=== PATIENT | male | born 1995 ===

== ENCOUNTER 2017-03-15 23:08 | Emergency (ER) | payer OTHER ==
[2017-03-15] MEDS ORDERED: Sodium Chloride 0.9% 1,000 ML IV ONE (23:39)
[2017-03-15] MEDS ORDERED: ceFAZolin 1 gm FROZEN Premix 1 GM/50 ML ML IVPB ONE (23:44)
[2017-03-15] MEDS ORDERED: Sodium Chloride 0.9% 1,000 ML ONE (23:44)
[2017-03-15] MEDS ORDERED: ceFAZolin IV 1 gm in Dextrose 1 GM/50 ML BAG IVPB SCH (23:45)
[2017-03-16 00:02] LABS: CHLORIDE 100 mmol/L (98-107); POTASSIUM 3.7 mmol/L (3.6-5.2); SODIUM 137 mmol/L (132-148)
[2017-03-16 00:03] LABS: INR 1.1
[2017-03-16 00:04] LABS: ALB/GLOB RATIO 1.3 (1.0-2.1); AST/SGOT 48 U/L (17-59); BILIRUBIN,TOTAL 0.7 mg/dL (0.2-1.3); CARBON DIOXIDE 25 mmol/L (22-30); GFR AFRICAN-AMERICAN > 60; TOTAL PROTEIN 7.7 g/dL (6.3-8.3)
[2017-03-16 00:05] LABS: ALKALINE PHOSPHATASE 80 U/L (38-126); ALT/SGPT 37 U/L (21-72); BLOOD UREA NITROGEN 15 mg/dL (9-20); CALCIUM 9.2 mg/dl (8.6-10.4); GLUCOSE,RANDOM 115 mg/dL (75-110)
--- NOTE | 2017-03-16 00:45 | CT ---
EXAM: CT Orbits Without Intravenous Contrast CLINICAL HISTORY: 21 years old, male; Pain; Eye pain and face pain; Right; Additional info: [facility] bed 6 TECHNIQUE: Axial computed tomography images of the orbits without intravenous contrast. This CT exam was performed using one or more of the following dose reduction techniques: automated exposure control, adjustment of the mA and/or kV according to patient size, and/or use of iterative reconstruction technique. Coronal and sagittal reformatted images were created and reviewed. COMPARISON: No relevant prior studies available. FINDINGS: Orbits: Preserved. Sinuses: No air-fluid levels. Bones/joints: No acute fracture. Soft tissues: Symmetric IMPRESSION: No acute fracture, as detailed above.
--- NOTE | 2017-03-16 00:49 | CT ---
EXAM: CT Cervical Spine Without Intravenous Contrast CLINICAL HISTORY: 21 years old, male; Pain; Neck pain; Additional info: [facility] bed6 TECHNIQUE: Axial computed tomography images of the cervical spine without intravenous contrast. This CT exam was performed using one or more of the following dose reduction techniques: automated exposure control, adjustment of the mA and/or kV according to patient size, and/or use of iterative reconstruction technique. Coronal and sagittal reformatted images were created and reviewed. COMPARISON: No relevant prior studies available. FINDINGS: Vertebrae: Oblique lucencies within the left lateral margin of the manubrium, possibly a nutrient foramen although asymmetric to the left for which an acute fracture cannot be excluded based on the submitted images. Dedicated chest imaging is suggested. Alignment: Straightening and slight reversal of the normal curvature of the cervical spine, possibly muscular in origin. Discs/spinal canal/neural foramina: No acute findings. Soft tissues: Symmetric Lung apices: The visualized lung apices are clear. IMPRESSION: Findings within the left lateral margin of the manubrium for which an acute fracture cannot be excluded based on the submitted imaging. Dedicated chest imaging is suggested for further evaluation.
--- NOTE | 2017-03-16 00:52 | CT ---
EXAM: CT Head Without Intravenous Contrast CLINICAL HISTORY: 21 years old, male; Pain; Headache; Additional info: [facility] bed 6 TECHNIQUE: Axial computed tomography images of the head/brain without intravenous contrast. This CT exam was performed using one or more of the following dose reduction techniques: automated exposure control, adjustment of the mA and/or kV according to patient size, and/or use of iterative reconstruction technique. COMPARISON: No relevant prior studies available. FINDINGS: Brain: No acute intracranial hemorrhage. No significant white matter disease. No edema. Ventricles: No significant ventriculomegaly. Bones: No acute displaced fracture. Sinuses: Unremarkable as visualized. No acute sinusitis. Mastoid air cells: Unremarkable as visualized. No mastoid effusion. Right frontal scalp hematoma is present. IMPRESSION: No acute intracranial hemorrhage, or suspicious mass effect.
[2017-03-16 00:57] LABS: BASO % 0.2 % (0.0-2.0); EOS % 0.1 % (0.0-4.0); HEMATOCRIT 46.2 % (35.0-51.0); LYMPH # 1.3 K/uL (1.0-4.3); LYMPH % 10.7 % (20.0-40.0); MEAN CELL VOLUME 97.9 fL (80.0-94.0); MEAN CORPUSCULAR HEMOGLOBIN 32.9 pg (27.0-31.0); MEAN CORPUSCULAR HGB CONC 33.7 g/dL (33.0-37.0); MEAN PLATELET VOLUME 8.4 fL (7.2-11.7); MONO # 0.7 K/uL (0.0-0.8); MONO % 5.8 % (0.0-10.0); RED CELL DISTRIBUTION WIDTH 12.7 % (11.5-14.5); WHITE BLOOD COUNT 12.1 K/uL (4.8-10.8)
[2017-03-16] MEDS ORDERED: Lidocaine 2% w Epi 1:100,000 Inj IJ ONE (01:17)
[2017-03-16] MEDS ORDERED: Bacitracin 500 Units/gm Oint Foilpak UD TOP ONE (01:27)
[2017-03-16] MEDS ORDERED: Bacitracin 500 Units/gm Oint Foilpak UD ONE (01:29)
[2017-03-16] MEDS ORDERED: Lidocaine/Epi 1% 1:100000 20 ML IJ ONE (01:31)
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
--- NOTE | 2017-03-16 04:37 | CT ---
EXAM: CT Chest Without Intravenous Contrast CLINICAL HISTORY: 21 years old, male; Pain; Chest pain; Additional info: R/O FX manubrium TECHNIQUE: Axial computed tomography images of the chest without intravenous contrast. This CT exam was performed using one or more of the following dose reduction techniques: automated exposure control, adjustment of the mA and/or kV according to patient size, and/or use of iterative reconstruction technique. Coronal and sagittal reformatted images were created and reviewed. COMPARISON: No relevant prior studies available. FINDINGS: Lungs: No mass. No consolidation. Pleural spaces: No significant effusion. No pneumothorax. Heart: No cardiomegaly. No significant pericardial effusion. Vasculature: No aortic aneurysm. Lymph nodes: No enlarged lymph nodes. Bones: Asymmetric lucency within the manubrium, possibly a nutrient foramen, for which clinical correlation is needed (regarding point tenderness, and mechanism of trauma). IMPRESSION: Asymmetric lucency within the manubrium, possibly a nutrient foramen, rather than acute fracture for which clinical correlation is needed (regarding point tenderness, and mechanism of trauma).
[2017-03-16 04:46] VITALS: RESP 20; O2SAT 99
[2017-03-16 05:58] VITALS: BP 118/65; PULSE 60; TEMP 97.6
== END 2017-03-16 06:36 | disposition home or self-care (01) ==
LOC: C.ER 23:08
DX: S01.111A Laceration without foreign body of right eyelid and periocular area, initial encounter (principal); V13.4XXA Pedal cycle driver injured in collision with car, pick-up truck or van in traffic accident, initial encounter; Y93.55 Activity, bike riding; Y92.410 Unspecified street and highway as the place of occurrence of the external cause
CPT/HCPCS: 12015; 70450; 70480; 71250; 72125; 80053; 85025; 85610; 85730; 86850; 86900; 90471; 90715; 96365; 96375; 99285; J0690; J1170; J1885; J7040

== ENCOUNTER 2017-03-24 20:54 | Emergency (ER) | payer SELFPAY ==
[2017-03-24] MEDS ORDERED: Bacitracin 500 Units/gm Oint Foilpak UD ONE (22:04)
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
[2017-03-24 22:13] VITALS: RESP 20
[2017-03-24 22:14] VITALS: BP 129/70; PULSE 88; TEMP 97.6
[2017-03-24 23:42] VITALS: O2SAT 97
== END 2017-03-24 22:14 | disposition home or self-care (01) ==
LOC: C.ER 20:54
DX: Z48.02 Encounter for removal of sutures (principal)